=== PATIENT | female | born 1930 | race Caucasian/White ===

== ENCOUNTER 2016-12-15 17:29 | Emergency (ER) | payer OTHER ==
[~2016-12-15] VITALS: Ht 149.9 cm; Wt 38.0 kg
[~2016-12-15 17:29] MED LIST: ADVI200C9; ADVICAP MT; ASPI325T; CALTTAB5 PO; MEVA40TA6; SERT-132 PO; XANA0.5T PO
[2016-12-15 17:57] VITALS: BP 134/65; PULSE 73; RESP 18; TEMP 98.3; O2SAT 95
[2016-12-15] MEDS ORDERED: TIZA2TAB PO (18:47)
[2016-12-15] MEDS ORDERED: CALTCHW5 PO (18:47)
[2016-12-15] MEDS ORDERED: LOVA20TA PO (18:47)
[2016-12-15] MEDS ORDERED: traMADol HCL 50 MG TAB PO ONE (19:30)
[2016-12-15] MEDS ORDERED: TRAM50TA PO (20:27)
--- NOTE | 2016-12-15 20:27 | PD ---
HPI Chief Complaint: Musculoskeletal Complaint Time Seen by Provider: 19:22 Travel History International Travel<30 days: No Contact w/Intl Traveler<30days: No Traveled to known affect area: No History of Present Illness HPI Patient is an 86-year-old female comes in complaining of lower back pain that shoots down her right leg. She says his been going on for the past week. She saw her doctor and was diagnosed with sciatica. She says she had x-rays performed that showed arthritis. She is waiting to see an orthopedic surgeon. She has been taking a muscle relaxer, but she says this is not helping with the pain. She denies numbness or tingling. She denies any urinary issues. She denies any injuries. 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) Substance Use: No Allergies-Medications (Allergen,Severity, Reaction): Coded Allergies: adhesive (Unverified Allergy, Intermediate, SWELLING, 12/15/16) PAPER IS OKAY Sulfa (Sulfonamide Antibiotics) (Unverified Allergy, Mild, rash, swelling , 12/15/16) Reported Meds & Prescriptions Reported Meds & Active Scripts Active Reported Tizanidine (Tizanidine HCl) 2 Mg Tab 2 Mg PO TID Caltrate 600+D Chew (Calcium Carbonate-Vitamin D Chew) 600-400 Mg-Unit Chew 1 Tab PO BID Lovastatin 20 Mg Tab 20 Mg PO DAILY Review of Systems General / Constitutional: No: Fever, Chills HENT: No: Headaches, Lightheadedness Cardiovascular: No: Chest Pain or Discomfort Respiratory: No: Shortness of Breath Gastrointestinal: No: Nausea, Vomiting Musculoskeletal: Positive: Pain, No: Edema Skin: No Rash, No Change in Pigmentation Neurologic: No: Incontinence, Sensory Disturbance Physical Exam Narrative GENERAL: Awake and alert, in no acute distress. SKIN: Focused skin assessment warm/dry. HEAD: Atraumatic. Normocephalic. EYES: Pupils equal and round. No scleral icterus. ENT: Mucous membranes pink and moist. CARDIOVASCULAR: Regular rate and rhythm. No murmur appreciated. RESPIRATORY: No accessory muscle use. Clear to auscultation. Breath sounds equal bilaterally. MUSCULOSKELETAL: No obvious deformities. No clubbing. No cyanosis. No edema. Tender to palpation of the right sacroiliac area. Mild pain with right straight leg raise. No bony tenderness. NEUROLOGICAL: Awake and alert. No obvious cranial nerve deficits. Motor grossly within normal limits. Normal speech. No saddle anesthesia. Data Data Last Documented VS Vital Signs Date Time Temp Pulse Resp B/P (MAP) Pulse Ox O2 Delivery O2 Flow Rate FiO2 12/15/16 17:57 98.3 73 18 134/65 (88) 95 Orders Orders Tramadol (Ultram) (12/15/16 19:30) [facility] Medical Decision Making Medical Screen Exam Complete: Yes Emergency Medical Condition: Yes Medical Record Reviewed: Yes Differential Diagnosis Sciatica versus arthritis versus muscle strain Narrative Course Patient is an 86-year-old female comes in complaining of right lower back pain that radiates down her leg. Exam shows tenderness to the sacroiliac area. There are no neurologic symptoms. Patient given a dose of tramadol. She says she would like to go home with a prescription. She says she is hungry and she is ready to leave. She is advised follow-up with her doctors. Advised to return to the ED as needed for any worsening symptoms. Diagnosis Primary Impression: Sciatica Qualified Codes: M54.31 - Sciatica, right side Patient Instructions: General Instructions, Sciatica (ED) Additional Instructions: Follow-up with your doctors. Take pain medicine as needed, because was it may make you drowsy. Return to the ED as needed for any worsening symptoms. Scripts Tramadol (Tramadol) 50 Mg Tab 50 MG PO Q6H Y for PAIN, #15 TAB 0 Refills Prov: Lachelle Greenwood MD 12/15/16 Disposition: 01 DISCHARGE HOME Condition: Stable Lachelle Greenwood MD Dec 15, 2016 20:27
== END 2016-12-15 20:35 | disposition home or self-care (01) ==
LOC: PHED 17:29 → PHEFT 20:35
DX: M54.31 Sciatica, right side (principal)
CPT/HCPCS: 99283